=== PATIENT | female | born 1965 | race African-American/Black ===

== ENCOUNTER → 2017-09-16 | Outpatient (CLI) | payer OTHER ==
[~2017-09-16] MED LIST: ACET-2047 PO; ASPI-535 PO; ATOR10TA65 PO; CARV25TA79 PO; CHOL400C11 PO; DOES NOT REMEMBER; ENAL2.5T36 PO; HYDR-906 PO; INSU100I27 SQ; LEVO175T6 PO; MAG355OR14 PO; NITR0.4T32 SL; PANT40TA4 PO; SS SC; ZOLP5TAB PO
--- NOTE | 2017-09-17 05:39 | HKNOTE ---
DATE OF SERVICE: CHIEF COMPLAINT: Bilateral knee pain. HISTORY OF PRESENT ILLNESS: This is a 51-year-old female who was complaining of progressively worse lorena bilateral knee pain over the last year. She has been using a cane for ambulation. She has marquita n when standing. She has difficulty performing her activities of daily living. She has difficulty navigating stairs. She takes ibuprofen for pain control. She has not had any previous treatment. She denies any groin or back pain. She has no other complaints. GAIT: Antalgic gait, reciprocal gait pattern. PHYSICAL EXAMINATION: LEFT KNEE EXAM: Neutral alignment. Tender over the medial joint line. Nontender over the lateral joint line, 0 to 120 degrees range of motion stable to varus valgus stress. Negative Chintan, negat christoph anterior drawer, negative posterior drawer, negative Joselin's. RIGHT KNEE EXAM: Neutral alignment. Tender over the medial joint line. Nontender over the lateral joint line, 0 to 120 degrees range of motion stable to varus valgus stress. Negative Chintan, nega tive anterior drawer, negative posterior drawer, negative Joselin's. NEURO: Motor strength 5/5, hamstrings, quadriceps, tibialis anterior, gastrocsoleus. IMAGING: X-rays, left knee, 3 views left knee demonstrate medial joint space narrowing with margina l osteophytes. Lateral compartment joint space is preserved. Right knee x-rays, 3 views left knee demonstrate medial joint space narrowing with marginal osteophytes. Lateral compartment joint space is preserved. IMPRESSION: A 51-year-old female with bilateral knee primary osteoarthritis. PLAN: We will request authorization for physical therapy. She was advised on weight loss. She can take ibuprofen for pain control. We will also request authorization for right knee corticosteroid injection. She will return in 6 weeks. Dictated By: JONO WU/EMRE Conf#: [id number] DID#: [id number]
== END | disposition home or self-care (01) ==
LOC: HKI 14:00
PROVIDERS: ATTEND Orthopaedic Surgery Adult Reconstructive Orthopaedic Surgery
DX: M17.0 Bilateral primary osteoarthritis of knee (principal)
CPT/HCPCS: G0463

== ENCOUNTER → 2017-10-13 | Outpatient (CLI) | payer OTHER ==
--- NOTE | 2017-10-13 14:12 | PN ---
Date/Time of Note Date/Time of Note DATE: 10/13/17 TIME: 14:08 Outpatient Progress Note Chief Complaint Right knee cortisone injection HPI 51-year-old female presents today for cortisone injection to the right knee. Last seen on 09/16/2017. Patient was seen for bilateral knee osteoarthritis. After discussion, physical examination and history, it was determined that patient should focus on losing weight to reduce potential risks regarding joint replacement. As an alternative cortisone injection was suggested that she can better manage her pain and inflammation while performing activities in regards to exercise. She continues with ongoing knee pain and discomfort with weightbearing to the bilateral knee. Right knee worse than the left knee. Denies any acute injury since she was last seen. No significant changes. Review of Systems Const: No Fever, no chills, no Fatigue, normal appetite, no diaphoresis. Resp: No SOB, no wheezing, no chest pain. CV: No chest pain, no palpitaions, no SMITH. Physical Exam Blood pressure is 154/77, temperature is 97.8, pulse is 85, respiratory rate is 12, height is 5 foot 1 inch, weight is 189 pounds General Appearance: well-developed, well-nourished, in no acute distress. Right knee: Full range of motion to the right knee with crepitus to the patellofemoral and medial compartment on exam today. No tenderness to palpation on exam. Pain with weightbearing. Abnormal gait with assisted ambulation using single-point cane. 5/5 strength on resistance. Allergies Coded Allergies: No Known Drug Allergy (Verified Allergy, Unknown, 03/07/11) Assessment/Plan * Cortisone injection performed to the right knee today. Area was marked prior to injection. Using alcohol swab area was sterilized. 1 cc of Kenalog 40 mg/ mL with 4 cc of 1% lidocaine injected into the knee using 25-gauge needle. Patient was observed for 5 minutes after injection and then discharged. * She continues with ongoing pain to the left knee. Patient was advised to follow-up in 2 weeks for left knee cortisone injection. * Continue ibuprofen as needed for pain, diet and exercise in hopes to lose weight prior to repeat discussion regarding total joint arthroplasty. * Follow-up as needed or in 2 weeks if she still desires cortisone injection to the left knee. Medications Home Meds Reported Medications Insulin Human Regular (Novolin-R U-100) 100 Unit/Ml Soln, 0 SC SLIDING SCALE ACHS, EA 09/15/16 Insulin Detemir (Levemir Flextouch) 100 Unit/1 Ml Insuln.pen, 10 UNIT SQ QHS 09/15/16 Mag Hydrox/Al Hydrox/Simeth (Maalox Advanced Suspension) 355 Ml Oral.susp, 30 ML PO Q6 for GASTROINTESTINAL UPSET 09/15/16 Zolpidem Tartrate* (Ambien*) 5 Mg Tablet, 5 MG PO QHS Y for INSOMNIA, #30 TAB 09/15/16 Pantoprazole (Protonix) 40 Mg Tabec, 40 MG PO AC BREAKFAST, TAB 09/15/16 Nitroglycerin* (Nitroglycerin* SL) 0.4 Mg Tab.subl, 0.4 MG SL Q5MIN Y for CHEST PAIN, BOTTLE 09/15/16 Levothyroxine Sodium* (Levothyroxine Sodium*) 175 Mcg Tablet, 175 MCG PO BEFORE BREAKFAST, #30 TAB 09/15/16 Enalapril Maleate* (Vasotec*) 2.5 Mg Tablet, 2.5 MG PO DAILY, TAB 09/15/16 Cholecalciferol (Vitamin D3) 400 Unit Capsule, 400 UNIT PO DAILY, CAP 09/15/16 Carvedilol* (Carvedilol*) 25 Mg Tablet, 25 MG PO Q12, #60 TAB 09/15/16 Atorvastatin (Atorvastatin) 10 Mg Tablet, 10 MG PO QHS, #30 TAB 09/15/16 Aspirin Ec (Aspir 81) 81 Mg Tablet.dr, 81 MG PO DAILY, #30 TAB 09/15/16 Hydrocodone/Acetaminophen ([place] 5-325 Tablet) 1 Each Tablet, 1 EACH PO Q4 for MODERATE PAIN LEVEL 4-6, TAB 09/15/16 Acetaminophen* (Acetaminophen*) 650 Mg Tablet, 650 MG PO Q6H Y for MILD PAIN LEVEL 1-3, #30 TAB 09/15/16 [Does Not Remember] No Conflict Check 03/07/11 SASHA KEITH PA-C Oct 13, 2017 14:12
== END | disposition home or self-care (01) ==
LOC: HKI 13:41
PROVIDERS: ATTEND Orthopaedic Surgery Adult Reconstructive Orthopaedic Surgery
DX: M17.0 Bilateral primary osteoarthritis of knee (principal); E11.9 Type 2 diabetes mellitus without complications; Z79.4 Long term (current) use of insulin; Z79.82 Long term (current) use of aspirin
CPT/HCPCS: 20610; Z7610

== ENCOUNTER → 2017-11-04 | Outpatient (CLI) | END | disposition home or self-care (01) ==

== ENCOUNTER 2017-12-25 09:52 | Emergency (ER) | END 2017-12-25 14:10 | disposition home or self-care (01) ==

== ENCOUNTER 2018-04-01 09:59 | Day surgery (SDC) | END 2018-04-01 15:38 | disposition home or self-care (01) ==

== ENCOUNTER → 2018-06-29 | Outpatient (CLI) | END | disposition home or self-care (01) ==

== ENCOUNTER 2018-12-31 07:59 | Emergency (ER) | payer OTHER ==
[~2018-12-31] VITALS: Ht 154.9 cm; Wt 75.0 kg
[~2018-12-31 07:59] MED LIST changes: -ACET-2047 PO; -ASPI-535 PO; -CHOL400C11 PO; -DOES NOT REMEMBER; -ENAL2.5T36 PO; -HYDR-906 PO; -INSU100I27 SQ; +LEVO100T8 PO; -LEVO175T6 PO; -MAG355OR14 PO; -NITR0.4T32 SL; -PANT40TA4 PO; -SS SC; -ZOLP5TAB PO; +ZOLP5TAB7 PO
[2018-12-31 08:07] VITALS: Ht 154.9 cm; Wt 75.0 kg
[2018-12-31] MEDS ORDERED: KETOROLAC 30 MG INJ IV STA (08:18)
[2018-12-31] MEDS ORDERED: DIAZEPAM 5 MG/ML SYG IV ONE (08:30)
--- NOTE | 2018-12-31 08:59 | ERD ---
ER Documentation Chief Complaint Chief Complaint BIB RESCUE. LOWER BACK PAIN SINCE AM FROM CLEANING. HPI Very pleasant 53-year-old female with history of prior coronary disease who presents to the emergency room with right lumbar back pain. She states that she has been cleaning up her house over the past 24 hours and noted a spasm to her right paraspinal lumbar back muscles. No radiation to the leg. No bowel or bladder incontinence or retention. The patient also notes radiation up the right side of her body. She states in the past when she had a heart attack she had chest discomfort. She denies any chest discomfort currently. She states that the pain did catch her breath but she denies any pressure in the chest or exertional symptoms. She does not describe this as her anginal equivalent. ROS All systems reviewed and are negative except as per history of present illness. Medications Home Meds Active Scripts Diazepam* (Valium*) 5 Mg Tablet, 5 MG PO Q8 PRN for MUSCLE SPASMS, #10 TAB Prov:SOFIE AUGUSTE MD 12/31/18 Ibuprofen* (Motrin*) 800 Mg Tab, 800 MG PO Q6H PRN for PAIN AND OR ELEVATED TEMP, #30 TAB Prov:SOFIE AUGUSTE MD 12/31/18 Reported Medications Zolpidem Tartrate* (Zolpidem Tartrate*) 5 Mg Tablet, 5 MG PO QHS PRN for INSOMNIA, #30 TAB 04/01/18 Carvedilol* (Carvedilol*) 25 Mg Tablet, 25 MG PO BID, #60 TAB 04/01/18 Atorvastatin Calcium (Atorvastatin Calcium) 10 Mg Tablet, 10 MG PO QHS, #30 TAB 04/01/18 Levothyroxine Sodium* (Levothyroxine Sodium*) 100 Mcg Tablet, 100 MCG PO BEFORE BREAKFAST, #30 TAB 03/31/18 Allergies Allergies: Coded Allergies: No Known Drug Allergy (Verified Allergy, Unknown, 04/01/18) PMhx/Soc History of Surgery: Yes (THYROIDECTOMY,CS,HERNIA REPAIR) Anesthesia Reaction: No Hx Neurological Disorder: No Hx Respiratory Disorders: No Hx Cardiac Disorders: No Hx Psychiatric Problems: No Hx Miscellaneous Medical Probl: No Hx Alcohol Use: No (OCCASSIONAL) Hx Substance Use: No Hx Tobacco Use: No Smoking Status: Former smoker FmHx Family History: No diabetes Physical Exam Vitals Vital Signs Date Temp Pulse Resp B/P (MAP) Pulse Ox O2 O2 Flow FiO2 Time Delivery Rate 12/31/18 98.1 63 17 149/83 96 Room Air 09:13 (105) 12/31/18 98.0 67 20 135/86 100 08:07 (102) Physical Exam General: Uncomfortable with movement Head: Normocephalic, atraumatic. Eyes: Pupils equally reactive, EOM intact ENT: Moist mucous membranes Neck: Supple, no lymphadenopathy Respiratory: Lungs clear bilaterally, no distress Cardiovascular: RRR, no murmurs, rubs, or gallops Abdominal: Soft, non-tender, non-distended, no peritoneal signs Back: No midline tenderness deformities or step-offs however paraspinal right- sided lumbar reproducible soft tissue tenderness. No CVAT : Deferred MSK: No edema, no unilateral swelling, 5/5 strength Neurologic: Alert and oriented, moving all extremities, normal speech, no focal weakness, no cerebellar signs Skin: No rash Psych: Normal mood Result Diagram: 12/31/18 0820 12/31/18 0820 Results 24 hrs Laboratory Tests Test 12/31/18 08:20 White Blood Count 4.7 10^3/ul Red Blood Count 4.79 10^6/ul Hemoglobin 12.5 g/dl Hematocrit 38.9 % Mean Corpuscular Volume 81.2 fl Mean Corpuscular Hemoglobin 26.1 pg Mean Corpuscular Hemoglobin Concent 32.1 g/dl Red Cell Distribution Width 14.3 % Platelet Count 309 10^3/UL Mean Platelet Volume 8.7 fl Immature Granulocytes % 0.200 % Neutrophils % 50.2 % Lymphocytes % 38.3 % Monocytes % 9.6 % Eosinophils % 1.1 % Basophils % 0.6 % Nucleated Red Blood Cells % 0.0 /100WBC Immature Granulocytes # 0.010 10^3/ul Neutrophils # 2.3 10^3/ul Lymphocytes # 1.8 10^3/ul Monocytes # 0.5 10^3/ul Eosinophils # 0.1 10^3/ul Basophils # 0.0 10^3/ul Nucleated Red Blood Cells # 0.0 10^3/ul Sodium Level 141 mmol/L Potassium Level 4.0 mmol/L Chloride Level 105 mmol/L Carbon Dioxide Level 23 mmol/L Anion Gap 13 Blood Urea Nitrogen 16 mg/dl Creatinine 1.01 mg/dl Est Glomerular Filtrat Rate mL/min > 60 mL/min Glucose Level 120 mg/dl Calcium Level 9.9 mg/dl Troponin I < 0.012 ng/ml Current Medications Medications Dose Sig/Karen Start Time Status Last (Trade) Ordered Route PRN Stop Time Admin Dose Reason Admin Ketorolac 30 mg ONCE STAT 12/31/18 DC 12/31/18 Tromethamine IV 08:18 12/31/18 08:26 (Toradol) 08:21 Diazepam 5 mg ONCE ONCE 12/31/18 DC 12/31/18 (Valium) IV 08:30 12/31/18 08:25 08:31 Procedures/MDM EKG, MONITORS, & DIAGNOSTIC IMAGING: EKG: I reviewed and interpreted a 12-lead EKG. Rhythm: Normal sinus rhythm ST Changes: No contiguous ST segment elevations T waves: No contiguous T wave inversions Impression: No evidence of acute cardiac ischemia LAB INTERPRETATION: I reviewed the laboratory testing and it shows no evidence of acute process MEDICAL DECISION MAKING: Patient's presentation is very consistent with likely lumbar spasm. The patient's low back pain is unlikely related to serious etiology. The patient exhibits no clinical signs or symptoms and has no history or risk factors to suggest cauda equina, cord compression, epidural abscess, epidural hematoma, acute aortic aneurysm or dissection. X-ray imaging unlikely to be helpful The patient does describe radiation of the right side of her body. She does not describe anginal equivalent but given her prior cardiac history EKG and troponin would be reasonable. Low concern for acute coronary syndrome and serial enzymes and inpatient hospitalization is unlikely to be necessary at this time. ER COURSE: * Patient given pain medication and muscle relaxant medication * Laboratory testing and EKG are unremarkable. The patient's symptoms are dramatically improved and she is resting comfortably. * Patient can be safely discharged return precautions were discussed and understood CONSULTATION: None DISPOSITION PLAN: Valium, Motrin Departure Diagnosis: Primary Impression: Spasm of lumbar paraspinous muscle Condition: Stable SOFIE AUGUSTE MD Dec 31, 2018 08:59
[2018-12-31 09:13] VITALS: BP 149/83; PULSE 63; RESP 17
[2018-12-31] MEDS ORDERED: IBUP800T48 PO (09:15)
[2018-12-31] MEDS ORDERED: DIAZ5TAB PO (09:15)
== END 2018-12-31 09:25 | disposition home or self-care (01) ==
LOC: E/R 07:59
DX: M62.830 Muscle spasm of back (principal); Z87.891 Personal history of nicotine dependence
CPT/HCPCS: 80048; 84484; 85025; 93005; J1885; J3360; 36415; 96374; 96375